=== PATIENT | male | born 1950 | race Caucasian/White ===

== ENCOUNTER → 2020-09-29 11:33 | Outpatient (CLI) | payer MEDICARE, OTHER, SELFPAY ==
--- NOTE | 2020-09-29 12:43 | NEURO_ITS ---
NCS and/or EMG Patient Report Ordering Doctor: Vincent Gomez DATE OF SERVICE: 09/29/20 Indication: Right wrist pain with associated weakness of convalescent sitter strength. No clear sensory disturbance. Evaluate for entrapment neuropathy. Findings: Nerve conduction studies were performed in the right upper extremity. The right median motor study recording the abductor pollicis brevis showed a borderline amplitude, borderline distal latency and borderline conduction velocity. The right ulnar motor study recording the abductor digiti minimi showed a normal amplitude, normal distal latency and normal conduction velocity. No conduction block or focal slowing was present across the elbow. Right median-ulnar lumbrical / interosseous motor latencies showed a prolonged median latency compared to the ulnar. The right median sensory response recording digit two showed a normal amplitude, prolonged latency and slowed conduction velocity. The right ulnar sensory response recording digit five showed a slightly reduced amplitude, borderline latency and mildly slowed conduction velocity. The right radial sensory response recording over the extensor snuff box showed a normal amplitude, latency and conduction velocity. Needle EMG of the right upper extremity and cervical paraspinal muscles was performed. Sparse active denervation was seen in the first dorsal interosseous muscle. Motor units in the abductor pollicis brevis, first dorsal interosseous and flexor digitorum profundus (medial) were large amplitude, long duration and mildly polyphasic with normal recruitment. All other examined muscles demonstrated normal motor unit morphology, activation and recruitment patterns. Impression: This is an abnormal study. 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 These findings would be compatible with the clinical diagnosis of carpal tunnel syndrome. In addition, there are findings s uggestive of a concurrent, non-localizing, right ulnar neuropathy. The reinnervation seen in the flexor digitorum profundus would implicate a lesion proximal to this. An ultrasound of the nerve could be considered for further localization. Finally, there is no definitive evidence of a superimposed cervical radiculopathy. Stephan Batista D.O.
== END ==
PROVIDERS: PCP Family Medicine; Referring Provider Family Medicine; Visit Provider Family Medicine
DX: G56.01 Carpal tunnel syndrome, right upper limb (principal)
CPT/HCPCS: 95886; 95910

== ENCOUNTER → 2023-10-05 | Outpatient (CLI) | payer MEDICARE, OTHER, SELFPAY ==
--- NOTE | 2023-10-05 15:21 | NEURO ---
NCS and/or EMG Patient Report Ordering Doctor: Yonas Pressley DATE OF SERVICE: 10/05/23 Bee presents for electrodiagnostic testing of the right upper and left lower limb. He reports tingling in the right arm and left leg. Electrodiagnostic findings: Right median motor nerve demonstrates prolonged distal latency with normal amplitude and reduced conduction velocity. Right ulnar motor response is within normal limits. Left peroneal motor nerve demonstrates normal distal latency. Normal amplitude and conduction velocity also noted when measured at the tibialis anterior. Median motor responses within normal limits. Borderline prolonged right extremity left tibial F?wave. H?reflex prolonged bilaterally. Prolonged right median sensory latency at the wrist. Prolonged left sural latency. Needle EMG testing was performed in the right upper and left lower limb. All muscles tested showed no evidence of denervation with normal motor unit action potentials. Electrodiagnostic impression: This is an abnormal study. 1. Electrodiagnostic findings suggestive of right-sided median mononeuropathy. This consistent with a moderate right carpal tunnel syndrome 2. 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 Multi Select Codes Neurology Neurology Interp Codes: 73235-59 Musc test done w/n test comp (interp) (2) and 65236-06 [facility] cndj test 13/> studies (interp)
== END | disposition home or self-care (01) ==
LOC: PSN 08:27
PROVIDERS: PCP Family Medicine; Referring Provider Orthopaedic Surgery; Visit Provider Orthopaedic Surgery
DX: M48.02 Spinal stenosis, cervical region (principal)
CPT/HCPCS: 95886; 95913